=== PATIENT | male | born 1995 | race American Indian/Alaskan Native ===

== ENCOUNTER 2021-08-08 14:22 | Emergency (ER) | payer SELFPAY ==
[~2021-08-08] VITALS: Ht 177.8 cm; Wt 107.3 kg
[2021-08-08 14:30] VITALS: BP 154/118; TEMP 98.3
[2021-08-08] MEDS ORDERED: VALTREX1 GM PO (15:00)
[2021-08-08] MEDS ORDERED: ARTIFICIAL TEA3.5 GM OP (15:00)
[2021-08-08] MEDS ORDERED: PREDNISONE50 MG PO (15:00)
[2021-08-08 15:10] VITALS: PULSE 83
== END 2021-08-08 15:10 | disposition home or self-care (01) ==
LOC: COL.ER 14:22
DX: G51.0 Bell's palsy (principal)